=== PATIENT | female | born 1990 ===

== ENCOUNTER 2025-10-10 10:04 | Outpatient (CLI) | payer OTHER | END 2025-10-10 10:05 | disposition home or self-care (01) | LOC: PRENATAL 10:04 | PROVIDERS: ATTEND Obstetrics & Gynecology Maternal & Fetal Medicine | DX: O44.02 Complete placenta previa NOS or without hemorrhage, second trimester (principal); O09.212 Supervision of pregnancy with history of pre-term labor, second trimester; O14.92 Unspecified pre-eclampsia, second trimester; O99.212 Obesity complicating pregnancy, second trimester; O34.212 Maternal care for vertical scar from previous cesarean delivery; O34.219 Maternal care for unspecified type scar from previous cesarean delivery ==